=== PATIENT | male | born 1970 | race Caucasian/White ===

== ENCOUNTER 2016-08-25 15:51 | Emergency (ER) | payer BC ==
[2016-08-25] MEDS ORDERED: LIDOCAINE 1% INJ-PF (10 MG/ML) 30 ML SDV INJ ONE (16:03)
--- NOTE | 2016-08-25 17:00 | ER Document Report ---
ED General - General Chief Complaint: Laceration Stated Complaint: LEFT LEG LACERATION Time seen by provider: 16:00 Mode of Arrival: Medic Information source: Patient Notes: 38 syndrome male using a chain saw to cut limbs on the ground this afternoon and cut his left lower leg with a saw. He has been ambulatory since denies injury elsewhere or other complaints Physical exam Well-developed well-nourished male alert and respiratory distress Skin warm and dry HEENT normocephalic atraumatic or Indonesian is moist which membranes Neck supple Chest clear to auscultation bilateral breath sounds equal Heart regular rate and rhythm without murmur Abdomen bowel sounds positive soft nontender nondistended no guarding rebound rigidity Extremity is warm to plus pulses of cyanosis no edema. Patient has a 6 cm laceration to the anteromedial portion of the left lower leg with minimal active bleeding. The lateral portion slightly macerated but otherwise it appears clean and sharp. He is able to move ankle and foot and toes without difficulty Neuro alert answers questions appropriately - Related Data Allergies/Adverse Reactions: No Known Allergies Allergy (Verified 08/25/16 16:57) Past Medical History - Social History Smoking Status: Never Smoker Family History: CAD, Hypertension - Past Medical History Cardiac Medical History: Reports: None Pulmonary Medical History: Reports: None Review of Systems - Review of Systems Constitutional: denies: Chills, Fever EENT: denies: Ear pain, Throat pain Cardiovascular: denies: Chest pain, Dyspnea, Syncope Respiratory: denies: Cough, Short of breath Gastrointestinal: denies: Abdominal pain, Diarrhea, Nausea, Vomiting Genitourinary: denies: Burning, Dysuria Musculoskeletal: denies: Back pain, Leg swelling, Ankle swelling Skin: denies: Rash Hematologic/Lymphatic: denies: Swollen glands Neurological/Psychological: denies: Weakness, Numbness Course - Re-evaluation Re-evalutation: 08/25/16 17:08 Laceration is closed without difficulty. Given the depth what I suspect is a scrape along bone and will place patient on antibiotics but I find no evidence on examination of contamination and wound appears clean Procedures - Laceration/Wound Repair Left Lower Leg Time completed: 16:50 Wound length (cm): 6 Wound's Depth, Shape: Linear Laceration pre-procedure: Sterile PPE donned, Betadine prep applied, Sterile drapes applied, Shur-Clens applied Anesthetic type: 1% Lidocaine Volume Anesthetic (mLs): 6 Wound explored: Clean Irrigated w/ Saline (mLs): 250 Wound Debrided: Minimal Wound Repaired With: Bharath Number of Sutures: 10 Post-procedure wound care: Sterile dressing applied Notes: 08/25/16 16:59 Wound base was easily visualized and copiously irrigated. Wound appears to go down to bone and there is no visible lesion to bone but I do palpate a faint linear depression about 2 cm long which is in line with the laceration and I think may represent minimal cortical defect. No foreign bodies are seen or palpated. Discharge - Discharge Clinical Impression: Laceration Condition: Stable Disposition: HOME, SELF-CARE Instructions: Prophylactic Antibiotic ([facility]), Laceration Care ([facility]), Antibiotic Ointment Protection ([facility]) Additional Instructions: Return to emergency department in 7 days for staple removal. Return right away for fever over 100.4, bleeding or drainage from laceration, redness around the laceration, or other problems Prescriptions: Cephalexin Monohydrate [Keflex 500 mg Capsule] 500 mg PO QID #40 capsule Sulfamethoxazole/Trimethoprim [Bactrim Ds Tablet] 1 each PO BID #20 tablet
[2016-08-25] MEDS ORDERED: DIPH/PERTUSS(ACELL)/TETANUS VAC/PF 0.5 ML SYR (>=10YO) IM ONE (17:11)
[2016-08-25 18:02] VITALS: BP 122/79
== END 2016-08-25 17:59 | disposition home or self-care (01) ==
LOC: ER 15:51
PROC: 0HQLXZZ Repair Left Lower Leg Skin, External Approach (ICD-10-PCS; principal; 2016-08-25)
DX: S81.812A Laceration without foreign body, left lower leg, initial encounter (principal); W29.3XXA Contact with powered garden and outdoor hand tools and machinery, initial encounter; Z23 Encounter for immunization
CPT/HCPCS: 90471; 90715; 99283

== ENCOUNTER 2016-09-01 08:05 | Emergency (ER) | payer BC ==
[2016-09-01 08:12] VITALS: BP 114/70
--- NOTE | 2016-09-01 08:45 | ER Document Report ---
ED Suture/Wound Recheck - General Chief Complaint: Staple Removal Stated Complaint: REMOVAL OF STITCHES Time seen by provider: 08:38 Mode of Arrival: Ambulatory Information source: Patient Notes: 45-year-old male presents to ED for table removals from his left lower extremity he states he is on antibiotics 2 has no pain at this time no redness no drainage. TRAVEL OUTSIDE OF THE [place] IN LAST 30 DAYS: No - HPI Previous ED treatment: Laceration repair Antibiotics given previously: Prescription Quality of pain: No pain Severity: None Pain Level: Denies Context: Injury Symptoms since procedure: Other - Chainsaw injury Exacerbated by: Denies Relieved by: Denies - Related Data Allergies/Adverse Reactions: No Known Allergies Allergy (Verified 09/01/16 08:07) Past Medical History - General Information source: Patient - Social History Smoking Status: Never Smoker Cigarette use (# per day): No Chew tobacco use (# tins/day): No Smoking Education Provided: No Frequency of alcohol use: Social Drug Abuse: None Lives with: Family Family History: Arthritis, CAD, Hypertension, Malignancy Patient has suicidal ideation: No Patient has homicidal ideation: No - Past Medical History Cardiac Medical History: Reports: None Pulmonary Medical History: Reports: None EENT Medical History: Reports: None Neurological Medical History: Reports: None Endocrine Medical History: Reports: None Renal/ Medical History: Reports: None Malignancy Medical History: Reports None GI Medical History: Reports: None Musculoskeltal Medical History: Reports Hx Musculoskeletal Trauma Skin Medical History: Reports None Psychiatric Medical History: Reports: None Traumatic Medical History: Reports: None Infectious Medical History: Reports: None Past Surgical History: Reports: Hx Orthopedic Surgery - R knee - Immunizations Hx Diphtheria, Pertussis, Tetanus Vaccination: Yes Review of Systems - Review of Systems Constitutional: No symptoms reported EENT: No symptoms reported Cardiovascular: No symptoms reported Respiratory: No symptoms reported Gastrointestinal: No symptoms reported Genitourinary: No symptoms reported Male Genitourinary: No symptoms reported Musculoskeletal: No symptoms reported Skin: Other - Laceration healing well no redness no drainage Hematologic/Lymphatic: No symptoms reported Neurological/Psychological: No symptoms reported Physical Exam - Vital signs Vitals: Temp Pulse Resp BP Pulse Ox 98.0 F 85 14 114/70 97 09/01/16 08:09 09/01/16 08:09 09/01/16 08:09 09/01/16 08:09 09/01/16 08:09 Interpretation: Normal - General General appearance: Appears well, Alert - HEENT Head: Normocephalic, Atraumatic Eyes: Normal Pupils: PERRL - Respiratory Respiratory status: No respiratory distress Chest status: Nontender Breath sounds: Normal Chest palpation: Normal - Cardiovascular Rhythm: Regular Heart sounds: Normal auscultation Murmur: No - Abdominal Inspection: Normal Distension: No distension Bowel sounds: Normal Tenderness: Nontender Organomegaly: No organomegaly - Back Back: Normal, Nontender - Extremities General upper extremity: Normal inspection, Nontender, Normal color, Normal ROM , Normal temperature General lower extremity: Nontender, Normal color, Normal ROM, Normal temperature , Normal weight bearing. No: Nakita's sign Calf: Laceration - Healing laceration was stapled last week. Bharath removed patient tolerated well. - Neurological Neuro grossly intact: Yes Cognition: Normal Orientation: AAOx4 Asa Coma Scale Eye Opening: Spontaneous Asa Coma Scale Verbal: Oriented Asa Coma Scale Motor: Obeys Commands Asa Coma Scale Total: 15 Speech: Normal Motor strength normal: LUE, RUE, LLE, RLE Sensory: Normal - Psychological Associated symptoms: Normal affect, Normal mood - Skin Skin Temperature: Warm Skin Moisture: Dry Skin Color: Normal Location of irregularity: Other - Healing laceration to left lower leg no drainage no redness denies pain states she still on antibiotics. Course - Vital Signs Vital signs: Temp Pulse Resp BP Pulse Ox 98.0 F 85 14 114/70 97 09/01/16 08:09 09/01/16 08:09 09/01/16 08:09 09/01/16 08:09 09/01/16 08:09 Discharge - Discharge Clinical Impression: Encounter for staple removal Condition: Stable Disposition: HOME, SELF-CARE Instructions: Staple Removal ([facility]) Additional Instructions: SOAP CLEANSING: Gently wash the wound daily using a mild soap (like Ivory, Phisoderm, Neutrogena). Use warm water, rubbing gently until all debris, ooze, and crusting have been washed from the wound. Allow to dry briefly (about 10 minutes) after cleaning. Repeat this cleansing at least three times a day for the first two days and then once or twice a day. ANTIBIOTIC OINTMENT PROTECTION: Your wounds are such that dressing them is not practical or optional. After cleansing, you should apply a thin coating of antibiotic ointment ( Bacitracin, not Neosporin) to the wounds at least three times daily. This lessens infection risk, and may decrease the amount of scarring. Use a q-tip or dull butter knife, not your finger, to apply this ointment. Any debris or ooze which builds up in the ointment should be gently rubbed off with a sterile gauze pad. Harder crusting may need to be gently scrubbed off with a clean wash cloth with soap and warm water, perhaps applying a warm, wet wash cloth to the wound for ten minutes first. Development of redness, severe itching, or blistering may mean allergy to the ointment. See the doctor. FOLLOW-UP CARE: If you have been referred to a physician for follow-up care, call the physician s office for an appointment as you were instructed or within the next two days. If you experience worsening or a significant change in your symptoms, notify the physician immediately or return to the Emergency Department at any time for re-evaluation.
== END 2016-09-01 08:58 | disposition home or self-care (01) ==
LOC: ER 08:05
DX: Z48.02 Encounter for removal of sutures (principal)